=== PATIENT | female | born 1935 | race Caucasian/White ===

== ENCOUNTER 2019-08-27 07:19 | Outpatient (CLI) | payer MEDICARE, BC ==
[~2019-08-27] VITALS: Ht 162.6 cm; Wt 63.6 kg
[2019-08-27 07:43] LABS: BASOPHILS 0.3 % (0-2); EOSINOPHILS 1.2 % (0-7); HEMATOCRIT 41.2 % (36.0-48.0); HEMOGLOBIN 12.2 g/dL (12-16); IMMATURE GRANULOCYTES 0.2 % (0-5); LYMPHOCYTES 27.1 % (15-50); MCH 25.4 pg (26.0-34.0); MCHC 29.6 g/dL (31.0-37.0); MCV 85.7 fL (80.0-100.0); MEAN PLATELET VOLUME 9.2 fL (7.4-10.4); MONOCYTES 8.4 % (2-11); NEUTROPHILS 62.8 % (40-80); RBC 4.81 10x6/uL (4.00-5.40); RDW 17.7 % (11.5-14.5); WBC 5.8 10x3/uL (4.8-10.8)
[2019-08-27 07:46] LABS: PLATELET COUNT 166 10x3/uL (130-400)
[2019-08-27 07:49] LABS: APTT 33.5 SECONDS (22.8-39.4); INR 1.22 (0.85-1.17); PROTIME 15.3 SECONDS (11.6-15.0)
[2019-08-27 07:50] LABS: ANION GAP 10.9 mmol/L (8-16); CALCIUM 8.5 mg/dL (8.5-10.1); CARBON DIOXIDE 29.5 mmol/L (21.0-32.0); POTASSIUM - SERUM 3.4 mmol/L (3.5-5.1)
[2019-08-27 08:07] VITALS: BP 151/57; Ht 162.6 cm; Wt 63.6 kg
[2019-08-27] MEDS ORDERED: ATIVAN1 MG PO (08:44)
[2019-08-27] MEDS ORDERED: FUROSEMIDE20 MG PO (08:44)
[2019-08-27] MEDS ORDERED: LEVOXYL75 MCG PO (08:45)
[2019-08-27] MEDS ORDERED: LIPITOR20 MG PO (08:46)
[2019-08-27] MEDS ORDERED: ISOSORBIDE MONO60 M1 PO (08:46)
[2019-08-27] MEDS ORDERED: VITAMIN B-122500 MCG SL (08:47)
[2019-08-27] MEDS ORDERED: [UNRECOGNIZED DRUG - OTHER] (08:48)
[2019-08-27] MEDS ORDERED: FOLATE0.4 MG PO (08:49)
--- NOTE | 2019-08-27 14:13 | NUR ---
1355-RADIOLOGY HERE TO PERFROM CHEST X RAY. PT WITHOUT COMPLAINTS,VSS,VERY PLEASANT.
--- NOTE | 2019-08-27 16:15 | NUR ---
1430-REGULAR TRAY TO ROOM.VSS. DENIES PAIN. DRESSING TO LEFT SIDE CDI. VERY PLEASANT LADY. ORDERS TO DISCHARGE HOME AT 1600.
--- NOTE | 2019-08-27 16:17 | NUR ---
1530-NO CHANGES. DENIES COMPLAINTS. VSS. REMOVED IV FROM WRIST WITH CATH INTACT,DISPOSED INTO SHAPRS,COVERED WITH GUAZE,SECURED WITH MEDIPORE TAPE.
--- NOTE | 2019-08-27 16:19 | NUR ---
1600-DISCHARGE CRITERIA MET. ESCORTED OUT TO DAUGHTER AWAITING TO DRIVE HOME. REVIEWED POST OPERATIVE INSTRUCTIONS AND FOLLOW UP NEEDED.
[2019-08-28 15:58] LABS: NEUT - BF 1 %
[2019-08-28 15:59] LABS: MACROPHAGES BF 59 %; MESOTHELIALS BF 21 %
[2019-08-29 11:09] LABS: FUNGUS STAIN Final report (())
== END 2019-08-27 16:00 | disposition home or self-care (01) ==
LOC: D.SP 07:19 → D.CT 10:00 → D.SP 16:00
PROVIDERS: Specialist; ATTEND Family Medicine
DX: J90 Pleural effusion, not elsewhere classified (principal); R06.00 Dyspnea, unspecified; I51.7 Cardiomegaly; K74.60 Unspecified cirrhosis of liver; K80.20 Calculus of gallbladder without cholecystitis without obstruction; R18.8 Other ascites